=== PATIENT | male | born 1985 | race Hispanic/Latino ===

== ENCOUNTER 2017-09-30 08:47 | Emergency (ER) | payer SELFPAY ==
[~2017-09-30] VITALS: Ht 160 cm; Wt 82.0 kg
[~2017-09-30 08:47] MED LIST: FLEXERIL PO; NAPROSYN500 MG PO
[2017-09-30 09:50] VITALS: BP 129/84
== END 2017-09-30 09:50 | disposition home or self-care (01) | DRG 563 ==
LOC: ED 08:47
DX: S63.502A Unspecified sprain of left wrist, initial encounter (principal); X58.XXXA Exposure to other specified factors, initial encounter; F17.290 Nicotine dependence, other tobacco product, uncomplicated